=== PATIENT | male | born 1965 | race Caucasian/White ===

== ENCOUNTER 2016-11-23 13:20 | Emergency (ER) | payer BC ==
[~2016-11-23 13:20] MED LIST: BETIMOL0.5 % OPH; BUM1 PO; COREG6 PO; COZ25 PO; JANUVIA100 MG PO; KLOR-CON 1010 MEQ PO; PRAVAC PO; VICTOZA18 MG/3 ML SC; VITAMIN D1000 UNI1 PO
== END 2016-11-23 18:42 | disposition short-term general hospital (02) ==
LOC: ER 13:20
DX: I63.9 Cerebral infarction, unspecified (principal); E11.9 Type 2 diabetes mellitus without complications; Z79.899 Other long term (current) drug therapy
CPT/HCPCS: 70450; 93005; 99291